=== PATIENT | female | born 1955 | race Caucasian/White ===

== ENCOUNTER 2016-12-10 11:57 | Day surgery (SDC) | payer OTHER ==
[~2016-12-10] VITALS: Ht 154.9 cm; Wt 55.1 kg
[~2016-12-10 11:57] MED LIST: BENZ100C70 PO; BUPR300T48 PO; CETI10TA34 PO; DIVA500T7 PO; FLUT15.88 NS; LEVO25TA59 PO; OMEP20CA16 PO; TRAM50TA2 PO
[2016-12-10 13:01] VITALS: Ht 154.9 cm; Wt 55.1 kg
[2016-12-10] MEDS ORDERED: TIOT18CA INHALATION (13:15)
[2016-12-10] MEDS ORDERED: LEVO25TA53 PO (13:15)
[2016-12-10] MEDS ORDERED: OMEP20CA16 PO (13:15)
[2016-12-10] MEDS ORDERED: DIVA250T12 PO (13:15)
[2016-12-10] MEDS ORDERED: ALBUTEROL SULFATE INH (13:16)
[2016-12-10] MEDS ORDERED: AZELASTINE HCL NASAL (13:16)
[2016-12-10] MEDS ORDERED: LIDOCAINE 4% SOLUTION 50 ML BTL ONE (14:05)
[2016-12-10] MEDS ORDERED: FENTAnyl 50 MCG/ML VIAL ONE (14:32)
[2016-12-10] MEDS ORDERED: MIDAZOLAM 1 MG/ML 2 ML INJ ONE (14:32)
--- NOTE | 2016-12-10 14:45 | GILP ---
DATE OF PROCEDURE: 12/10/2016 PROCEDURE: Esophagogastroduodenoscopy. PREOPERATIVE DIAGNOSIS: Patient presenting with history of abdominal discomfort, periodic vomiting, rule out gastroesophageal reflux disease, peptic ulcer disease, neoplasm. POSTOPERATIVE DIAGNOSES: 1. Mild fundal gastritis, mild reflux esophagitis. 2. Small polyps in the gastric fundus. DESCRIPTION OF PROCEDURE: After the informed written consent was obtained, the patient was asked to lie on the left lateral side, 2 mg Versed and 50 mcg of fentanyl were given as intravenous anesthes ia. When the patient became somnolent, the Olympus video upper endoscope was introduced into the orophar ynx, then into the esophagus. Esophagus appeared to show minimal erythema above the GE junction ind icating mild reflux esophagitis. Scope at this time was advanced into the stomach. Stomach showed evidence of minimal erythema in the fundus of the stomach and 2 polyps were noted in the fundus tamy uring 3 mm each in diameter and there were sessile polyps. This could very well be fundic glands. These 2 polyps were removed with a cold biopsy forceps. Also, biopsy was done from the antrum, the lesser curvature and the fundus to rule out H. pylori infection. Duodenum was examined up to the en d of the third portion, which appeared normal. Endoscope at this time was withdrawn and no addition al abnormalities detected and the procedure was terminated. PLAN: Recommend proton pump inhibitor therapy to be continued and recommend Reglan 10 mg before eac h meal. Dictated By: LANDON COREY/NTS Conf#: [id number] DID#: [id number] CC: KUSUM SAVAGE MD; LANDON SAMPSON MD;*EndCC*
[2016-12-10 14:53] VITALS: BP 114/60; PULSE 77; RESP 19
== END 2016-12-10 16:35 | disposition home or self-care (01) ==
LOC: GIL 11:57
PROVIDERS: ATTEND Internal Medicine Gastroenterology
DX: K31.7 Polyp of stomach and duodenum (principal); K21.0 Gastro-esophageal reflux disease with esophagitis; I10 Essential (primary) hypertension
CPT/HCPCS: 43239; 88305; J2250; J3010; Z7610

== ENCOUNTER → 2017-03-24 | Outpatient (CLI) | payer OTHER ==
[~2017-03-24] MED LIST changes: +ALBUTEROL SULFATE INH; +AZELASTINE HCL NASAL; +DIVA250T12 PO; +FLUT16SP17 NASAL; +LEVO25TA53 PO; +MELO-109 PO; +PSYL3.4P5 PO; +SENN-53 PO; +TIOT18CA INHALATION; +TRAM-40 PO
--- NOTE | 2017-03-24 15:47 | RADRPT ---
PROCEDURE: Video-fluoroscopy swallowing study. CLINICAL INDICATION: Dysphagia. TECHNIQUE: Fluoroscopic guided video swallowing study was done in conjunction with the speech ther apist. The study was confined to the oral, pharyngeal, and cervical phases of the swallowing mechani sm. 3.3 minutes of fluoroscopy time was used. 16 series of images were obtained. COMPARISON: No prior study is available for comparison. FINDINGS: There is no evidence of aspiration during the exam. IMPRESSION: 1. No aspiration during swallowing. 2. Please refer to the speech therapist's recommendations for future feedings. RPTAT: QQ .Homar Barcenas MD, MD Date Time Electronically viewed and signed by .Homar Barcenas MD, on 03/24/2017 15:47 .R/
== END | disposition home or self-care (01) ==
LOC: RAD 12:43
PROVIDERS: ATTEND Otolaryngology
DX: R13.10 Dysphagia, unspecified (principal); H91.92 Unspecified hearing loss, left ear
CPT/HCPCS: 74230; 92611

== ENCOUNTER 2017-03-25 12:37 | Day surgery (SDC) | payer OTHER ==
[2017-03-25] VITALS (14 sets, daily range): BP systolic 103–146; BP diastolic 53–70; PULSE 72–80; RESP 11–25; Ht 154.9 cm; Wt 54.4 kg
[~2017-03-25] VITALS: Ht 154.9 cm; Wt 54.4 kg
[~2017-03-25 12:37] MED LIST changes: -BENZ100C70 PO; -CETI10TA34 PO; +DESFLURANE 15 MIN ONE; -DIVA500T7 PO; -FLUT15.88 NS; -FLUT16SP17 NASAL; -LEVO25TA59 PO; +LIDOCAINE 2% (SDV) 5 ML INJ ONE; -MELO-109 PO; -PSYL3.4P5 PO; -SENN-53 PO; -TRAM-40 PO; -TRAM50TA2 PO
[2017-03-25] MEDS ORDERED: CEFAZOLIN 2 GM/50 ML (PMX) 50 ML IVPB ONE (13:00)
[2017-03-25] MEDS ORDERED: SOD CHLORIDE 0.9% 1,000 ML IV SCH (13:00)
[2017-03-25] MEDS ORDERED: LEVO25TA53 PO (13:27)
[2017-03-25] MEDS ORDERED: MELO-109 PO (13:28)
[2017-03-25] MEDS ORDERED: ONDANSETRON 4 MG INJ IV PRN (13:30)
[2017-03-25] MEDS ORDERED: MEPERIDINE 25 MG INJ IV PRN (13:30)
[2017-03-25] MEDS ORDERED: SENN-53 PO (13:30)
[2017-03-25] MEDS ORDERED: DIPHENHYDRAMINE 50 MG INJ IV PRN (13:30)
[2017-03-25] MEDS ORDERED: HYDROmorphONE (0.2 MG/ML) 10ML SYG IV PRN ×2 (13:30)
[2017-03-25] MEDS ORDERED: FENTAnyl 50 MCG/ML VIAL IV PRN (13:30)
[2017-03-25] MEDS ORDERED: FLUT16SP17 NASAL (13:32)
[2017-03-25] MEDS ORDERED: PSYL3.4P5 PO (13:33)
[2017-03-25] MEDS ORDERED: TRAM-40 PO (13:34)
[2017-03-25] MEDS ORDERED: BUPIVACAINE 0.25% (MPF) 30 ML INJ ONE (14:14)
[2017-03-25] MEDS ORDERED: ROCURONIUM 50 MG INJ ONE (14:19)
[2017-03-25] MEDS ORDERED: MIDAZOLAM 1 MG/ML 2 ML INJ ONE (14:19)
[2017-03-25] MEDS ORDERED: FENTAnyl 50 MCG/ML VIAL ONE (14:19)
[2017-03-25] MEDS ORDERED: PROPOFOL 20 ML ONE (14:19)
[2017-03-25] MEDS ORDERED: CEFAZOLIN 1 GM INJ ONE (14:30)
[2017-03-25] MEDS ORDERED: FAMOTIDINE 20 MG INJ ONE (14:37)
[2017-03-25] MEDS ORDERED: ONDANSETRON 4 MG INJ ONE (14:37)
[2017-03-25] MEDS ORDERED: DEXAMETHASONE 4 MG/ML 1 ML INJ ONE (14:37)
[2017-03-25] MEDS ORDERED: PHENYLephrine (100 MCG/ML) 5ML SYG ONE (14:37)
[2017-03-25] MEDS ORDERED: ROPIVACAINE 0.2% 20 ML VIAL ONE (14:39)
--- NOTE | 2017-03-25 15:05 | OPR ---
Date/Time of Note Date/Time of Note DATE: 03/25/17 TIME: 15:02 Operative Report Procedure Date: Mar 25, 2017 Preoperative Diagnosis symptomatic gallstones Postoperative Diagnosis same Operation Performed 1. laparoscopic cholecystectomy 2. therapeutic injection of subcutaneous marcaine cpt code [id number] Surgeon: Mayo AVILA English Drawer: TAMIKO SCHUMACHER MD Anesthesia Type: general Estimated Blood Loss: 0 - 10 ml's Specimens gallbladder Grafts/Implants: none Complications: no Indications This is a 7-year-old female with subsided gallstones. She requires surgical excision of her gallbladder. Risks alternatives benefits and percent were discussed the patient. Patient expressed understanding consents to the operation. Procedure Description Patient is taken to the OR and prepped and draped in usual sterile fashion. Surgical timeout was performed. IV antibiotics are given. Infraumbilical transverse incision is made with a 15 blade. Dissection cautery was carried onto the fascia. The fascia was grasped with Bairoil's and divided with curved Rome scissors. 0 Vicryl U stitch was placed to the fascia. Balloon Howard trocar is introduced. Pneumoperitoneum is established. Midepigastric 12 mm optical trocar was placed under direct visualization. Right upper quadrant upper flank 5 mm optical trochars were placed under direct visualization. Upon initial inspection disease of the gallbladder. The fundus of the gallbladder was grasped and retracted in the lateral outward maneuver. Lateral dissection was started with cautery. Cystic duct and cystic artery are identified. The critical view is established. The cystic duct was divided using a 35 mm echelon vascular stapler. Additional clips are placed for reinforcement. The cystic artery is divided with 3 clips proximal 1 clip distal. The gallbladder signal of the gallbladder bed. There is good hemostasis. The gallbladder is retrieved using an Endo Catch bag. Ports removed under direct visualization. 0 Vicryl U stitch was tied down. Skin is closed using skin aparna. Therapeutic subcutaneous Marcaine is injected throughout the incision. Dry dressings were applied. Mayo AVILA Mar 25, 2017 15:05
[2017-03-25] MEDS ORDERED: SUGAMMADEX SODIUM 200 MG/2 ML VIAL IV ONE (15:13)
[2017-03-25] MEDS ORDERED: KETOROLAC 30 MG INJ ONE (15:13)
[2017-03-25] MEDS ORDERED: HYDROCODONE/APAP (5/325) TAB PO ONE (15:30)
== END 2017-03-25 18:00 | disposition home or self-care (01) ==
LOC: SDS 12:37
PROVIDERS: ATTEND Surgery
DX: K80.20 Calculus of gallbladder without cholecystitis without obstruction (principal); K80.10 Calculus of gallbladder with chronic cholecystitis without obstruction; E03.9 Hypothyroidism, unspecified; J44.9 Chronic obstructive pulmonary disease, unspecified
CPT/HCPCS: 47562; 88304; J0690; J1100; J1170; J1885; J2250; J2405; J2795; J3010; Z7512; Z7610; J2370